=== PATIENT | male | born 1975 | race Caucasian/White ===

== ENCOUNTER 2021-12-06 04:11 | Emergency (ER) | payer BC ==
[~2021-12-06] VITALS: Ht 177.8 cm; Wt 73.4 kg
[2021-12-06] MEDS ORDERED: IBUPROFEN 400 MG TABLET. PO ONE (04:45)
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
--- NOTE | 2021-12-06 05:16 | RAD ---
XR FOOT_LEFT 3 VIEWS DATE: 12/06/2021 4:57 AM INDICATION: PAIN COMPARISON: None. FINDINGS: Bones: There is no evidence of acute fracture or dislocation. Chronic appearing fragment at the base of the second proximal phalanx. Joints: Mild degenerative changes of the first MTP joint. Miscellaneous: None. IMPRESSION: No evidence of acute fracture. Electronically signed by: Markel Pérez MD (12/06/2021 5:14 AM) [facility]
[2021-12-06] MEDS ORDERED: IBUP-1060 PO (05:31)
[2021-12-06 05:38] VITALS: BP 114/69
== END 2021-12-06 05:40 | disposition home or self-care (01) ==
LOC: ER 04:11
DX: M79.675 Pain in left toe(s) (principal)
CPT/HCPCS: 73630; 99283